=== PATIENT | female | born 1975 | race Hispanic/Latino ===

== ENCOUNTER → 2017-07-07 | Outpatient (CLI) | payer BC ==
[~2017-07-07] MED LIST: GADOBENATE DIMEGLUMINE 20 ML IV ONE
== END | disposition home or self-care (01) ==
LOC: RAH 12:54
PROVIDERS: ATTEND Psychiatry & Neurology Neurology
DX: M48.02 Spinal stenosis, cervical region (principal); M47.892 Other spondylosis, cervical region; M50.20 Other cervical disc displacement, unspecified cervical region; R29.2 Abnormal reflex; R39.15 Urgency of urination
CPT/HCPCS: 72156; A9577

== ENCOUNTER → 2017-11-29 | Outpatient (CLI) | payer BC | END | disposition home or self-care (01) | LOC: RAH 15:21 | PROVIDERS: ATTEND Obstetrics & Gynecology | DX: R10.2 Pelvic and perineal pain (principal); E03.9 Hypothyroidism, unspecified; Z90.710 Acquired absence of both cervix and uterus | CPT/HCPCS: 76856 ==

== ENCOUNTER → 2018-03-14 | Outpatient (CLI) | payer BC | END | disposition home or self-care (01) | LOC: RAH 15:22 | PROVIDERS: ATTEND Obstetrics & Gynecology | DX: N83.201 Unspecified ovarian cyst, right side (principal); R10.2 Pelvic and perineal pain; Z90.710 Acquired absence of both cervix and uterus | CPT/HCPCS: 76830; 76856 ==

== ENCOUNTER → 2018-06-16 | Outpatient (CLI) | payer BC ==
[~2018-06-16] MED LIST changes: -GADOBENATE DIMEGLUMINE 20 ML IV ONE; +GADODIAMIDE 5 MMOL/10 ML VIAL 5 MMOL/10 ML ML IV ONE
== END | disposition home or self-care (01) ==
LOC: RAH 08:52
PROVIDERS: ATTEND Otolaryngology Plastic Surgery within the Head & Neck
DX: R42 Dizziness and giddiness (principal)
CPT/HCPCS: 70553 ×2; A9579

== ENCOUNTER → 2018-07-13 | Outpatient (CLI) | payer BC ==
[~2018-07-13] MED LIST changes: +GADODIAMIDE 10 MMOL/20 ML VIAL IV ONE; -GADODIAMIDE 5 MMOL/10 ML VIAL 5 MMOL/10 ML ML IV ONE
== END | disposition home or self-care (01) ==
LOC: RAH 07:17
PROVIDERS: ATTEND Internal Medicine Endocrinology, Diabetes & Metabolism
DX: D35.2 Benign neoplasm of pituitary gland (principal)
CPT/HCPCS: 70553; A9579

== ENCOUNTER → 2019-08-24 | Outpatient (CLI) | payer BC | END | disposition home or self-care (01) | LOC: RAH 09:13 | PROVIDERS: ATTEND Internal Medicine Nephrology | DX: M51.27 Other intervertebral disc displacement, lumbosacral region (principal) | CPT/HCPCS: 72148 ==

== ENCOUNTER → 2019-12-25 | Outpatient (CLI) | payer BC | END | disposition home or self-care (01) | LOC: RAH 10:54 | PROVIDERS: ATTEND Internal Medicine Gastroenterology | DX: R14.0 Abdominal distension (gaseous) (principal); R68.81 Early satiety; R11.0 Nausea | CPT/HCPCS: 78264; A9541 ==

== ENCOUNTER → 2020-09-11 | Outpatient (CLI) | payer BC | END | disposition home or self-care (01) | LOC: RAH 15:02 | PROVIDERS: ATTEND Physical Medicine & Rehabilitation | DX: M51.17 Intervertebral disc disorders with radiculopathy, lumbosacral region (principal); M48.07 Spinal stenosis, lumbosacral region | CPT/HCPCS: 72148 ==

== ENCOUNTER → 2022-03-04 | Outpatient (CLI) | payer BC | END | disposition home or self-care (01) | LOC: RAH 11:23 | PROVIDERS: ATTEND Obstetrics & Gynecology | DX: N83.201 Unspecified ovarian cyst, right side (principal); R10.2 Pelvic and perineal pain | CPT/HCPCS: 76856 ==

== ENCOUNTER → 2022-07-31 | Outpatient (CLI) | payer BC | END | disposition home or self-care (01) | LOC: RAH 14:02 | PROVIDERS: ATTEND Internal Medicine Nephrology | DX: R94.4 Abnormal results of kidney function studies (principal) | CPT/HCPCS: 76770 ==

== ENCOUNTER → 2023-09-27 | Outpatient (CLI) | payer BC | END | disposition home or self-care (01) | LOC: RAH 09:31 | PROVIDERS: ATTEND Obstetrics & Gynecology | DX: R10.2 Pelvic and perineal pain (principal); Z90.710 Acquired absence of both cervix and uterus | CPT/HCPCS: 76830 ==

== ENCOUNTER → 2024-01-26 | Outpatient (CLI) | payer BC ==
--- NOTE | 2024-01-27 09:14 | HMCIMG ---
Diagnostic left breast mammogram and left breast ultrasound HISTORY: UNSPECIFIED LUMP IN LEFT BREAST COMPARISON: 07/28/2023 TECHNIQUE: Left breast digital diagnostic mammogram was performed. Focal spot compression views also were obtained. Left breast ultrasound was performed as well. FINDINGS: Parenchymal density: The breasts are heterogeneously dense, which may obscure small masses. There is no evidence of a dominant mass, or suspicious microcalcification. There is no evidence of nipple retraction or skin thickening. Focal spot compression views show no architectural distortion or underlying focal mass. Ultrasound images show normal appearing parenchyma. There is a 3 mm cyst in the 8:00 position. There are no solid nodules. There is no architectural distortion or acoustical shadowing. There is no skin thickening. There are some normal-appearing lymph nodes in the left axilla. IMPRESSION: 1. No mammographic or sonographic evidence of a malignant process in the left breast. The patient was entered into a reminder system with a target due date for their next mammogram. BI-RADS CATEGORY 2: BENIGN FINDINGS Recommend monthly self breast exam as well as annual clinical examination. A negative x-ray should not delay biopsy if a dominant or clinically suspicious mass is present, since 8-10% of cancers are not identified by mammography. Dense breasts particularly, may obscure an underlying neoplasm. Some of these may be detected clinically and therefore, clinical examination is an essential part of breast evaluation.
== END | disposition home or self-care (01) ==
LOC: RAH 12:46
PROVIDERS: ATTEND Obstetrics & Gynecology
DX: N60.02 Solitary cyst of left breast (principal); R92.332 Mammographic heterogeneous density, left breast; N63.24 Unspecified lump in the left breast, lower inner quadrant
CPT/HCPCS: 76641; 77065

== ENCOUNTER → 2024-07-26 | Outpatient (CLI) | payer BC ==
--- NOTE | 2024-07-27 09:09 | HMCIMG ---
Exam Type: CHEST 2VWS Clinical Information: SOB Comparison: None Findings: The lungs are clear of infiltrates. The heart is normal in size. The bony and soft tissue structures of the chest are unremarkable. Impression: Clear lungs.
== END | disposition home or self-care (01) ==
LOC: RAH 16:42
PROVIDERS: ATTEND Internal Medicine Nephrology
DX: R06.02 Shortness of breath (principal)
CPT/HCPCS: 71046

== ENCOUNTER 2024-08-11 12:31 | Emergency (ER) | payer BC ==
[~2024-08-11] VITALS: Ht 160 cm; Wt 76.2 kg
[2024-08-11 13:18] LABS: BASOPHILS # (AUTO) 0.02 K/uL (0.00-0.20); BASOPHILS % (AUTO) 0.2 % (0.0-5.0); EOSINOPHILS # (AUTO) 0.05 K/uL (0.00-0.70); EOSINOPHILS % (AUTO) 0.5 % (0.0-8.0); HEMATOCRIT 40.8 % (36-48); IMMATURE GRANULOCYTE ABSOLUTE 0.05 K/uL (0-1); LYMPHOCYTES # (AUTO) 0.8 K/uL (1.0-4.8); LYMPHOCYTES % (AUTO) 7.6 % (21.0-51.0); MEAN CORPUSCULAR HEMOGLOBIN 28.6 pg (27.0-33.0); MEAN CORPUSCULAR HGB CONC 33.3 g/dL (32.0-36.0); MEAN CORPUSCULAR VOLUME 85.9 fL (79-99); MONOCYTES # (AUTO) 0.6 K/uL (0.1-1.0); MONOCYTES % (AUTO) 5.9 % (3.0-13.0); NEUTROPHILS # (AUTO) 8.5 K/uL (1.8-7.7); NEUTROPHILS % (AUTO) 85.3 % (40.0-77.0); PLATELET COUNT (AUTO) 237 K/uL (130-400); RED BLOOD CELL COUNT(AUTO) 4.75 MIL/uL (4.00-5.50); RED CELL DISTRIBUTION WIDTH 13.3 % (11.0-15.5)
--- NOTE | 2024-08-11 13:18 | EKG ---
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
[2024-08-11 13:28] LABS: POTASSIUM 3.9 mmol/L (3.5-5.1)
[2024-08-11 13:46] LABS: B-TYPE NATRIURETIC PEPTIDE 24 pg/mL (0-100)
[2024-08-11] MEDS: ASPIRIN 325MG TAB PO ONE (14:18)
[2024-08-11 14:41] LABS: BAND NEUTROPHILS % (MANUAL) 1 % (0-2); BASOPHILS % (MANUAL) 1 % (0-2); LYMPHOCYTES % (MANUAL) 4 % (22-44); MAN.DIFF COMMENT-IMPRESSION MANUAL DIFFERENTIAL; MONOCYTES % (MANUAL) 3 % (2-9); REACTIVE LYMPHOCYTES 6 % (0-0); SEGMENTED NEUTROPHILS % 85 % (40-70); TOTAL CELLS COUNTED 100
[2024-08-11 14:42] LABS: PLATELET MORPHOLOGY COMMENT ADEQUATE
--- NOTE | 2024-08-11 15:21 | HMCIMG ---
CHEST 1VW HISTORY: Chest pain COMPARISON: None FINDINGS: A frontal projection of the chest was obtained. No acute pulmonary infiltrates is seen. The heart is normal in size. Degenerative changes are seen. No evidence of aortic calcification is seen. IMPRESSION: 1. No acute pulmonary infiltrate is seen.
[2024-08-11] MEDS: MAG/ALUM/SIMETH 30 ML UDCUP PO ONE (16:15)
[2024-08-11] MEDS: PANTOPrazole 40 MG TAB DR PO ONE (16:15)
[2024-08-11] MEDS: LIDOCAINE HCL 2% VISCOUS 15 ML UDCUP PO ONE (16:15)
--- NOTE | 2024-08-11 16:20 | ERN ---
General Chief Complaint: Chest Pain Stated Complaint: CHEST PAIN Time Seen by MD: 12:41 Time Seen by Midlevel: 12:41 Source: patient History of Present Illness Initial Comments 49-year-old female who presents to the emergency department due to chest pain onset 3 days. Patient reports epigastric discomfort, states she took a Tums prior to arrival without relief. Denies any nausea, vomiting, shortness of breath or further associated symptoms. PMHx thyroid cancer. Surgical history thyroidectomy Allergies: Coded Allergies: No Known Drug Allergies (Unverified Allergy, Unknown, 08/11/24) Past Medical History Past Medical History: Other Medical History Other: THYROID CANCER, THYROID PROBLEM Past Surgical History: Hysterectomy Surgical History Other: THYROIDECTOMY ROS Dictation Constitutional: Negative for fever,chills, and weight loss Eyes: Negative for injury, pain,redness, and discharge ENT: Negative for injury,pain or swelling Cardiovascular: Positive for chest pain Negative for palpitations, and edema Respiratory: Negative for shortness of breath, cough, and wheezing, Abdomen/GI: Positive for epigastric discomfort Negative for abdominal pain, nausea, vomiting, diarrhea, and constipation Back: Negative for injury and pain : Negative for painful urination, bleeding or discharge MS/Extremity: Negative for injury and deformity Skin: Negative for rash, and discoloration Neuro: Negative for headache, weakness, numbness, tingling, and seizure Psych: Negative for suicide ideation, homicidal ideation, and hallucinations Physical Exam Physical Exam Dictation General: awake, alert, no acute distress Head/Face: Normocephalic, atraumatic Eyes: PERRL, EOMI, normal conjuctiva ENT: oral cavity clear, oral mucosa moist Neck: Supple, normal range of motion Cardiovascular: RRR, normal S1/S2 Respiratory: CTAB, no respiratory distress, no rales or wheezes Abdomen: Soft, non-tender, non-distended, no guarding or rebound. Skin: Warm, dry, normal turgor, no rash MS/Extremity: Pulses equal, no cyanosis, neurovascular intact, FROM Neuro: COAx4, GCS 15, strength 5/5, CN 2-12 intact, normal cerebellar exam, normal gait Psych: Normal behavior, mood, and affect normal Results Laboratory and Microbiology Lab and Micro Result Laboratory Tests Test 08/11/24 13:00 08/11/24 16:20 White Blood Count 10.0 K/uL (4.8-10.8) Red Blood Count 4.75 MIL/uL (4.00-5.50) Hemoglobin 13.6 g/dL (12.0-16.0) Hematocrit 40.8 % (36-48) Mean Corpuscular Volume 85.9 fL (79-99) Mean Corpuscular Hemoglobin 28.6 pg (27.0-33.0) Mean Corpuscular Hemoglobin Concent 33.3 g/dL (32.0-36.0) Red Cell Distribution Width 13.3 % (11.0-15.5) Platelet Count 237 K/uL (130-400) Mean Platelet Volume 11.2 fL (7.5-10.5) H Immature Granulocyte % (Auto) 0.5 % (0-1) Neutrophils (%) (Auto) 85.3 % (40.0-77.0) H Lymphocytes (%) (Auto) 7.6 % (21.0-51.0) L Monocytes (%) (Auto) 5.9 % (3.0-13.0) Eosinophils (%) (Auto) 0.5 % (0.0-8.0) Basophils (%) (Auto) 0.2 % (0.0-5.0) Neutrophils # (Auto) 8.5 K/uL (1.8-7.7) H Lymphocytes # (Auto) 0.8 K/uL (1.0-4.8) L Monocytes # (Auto) 0.6 K/uL (0.1-1.0) Eosinophils # (Auto) 0.05 K/uL (0.00-0.70) Basophils # (Auto) 0.02 K/uL (0.00-0.20) Absolute Immature Granulocyte (auto 0.05 K/uL (0-1) Segmented Neutrophils % 85 % (40-70) H Band Neutrophils % 1 % (0-2) Lymphocytes % (Manual) 4 % (22-44) L Monocytes % (Manual) 3 % (2-9) Basophils % (Manual) 1 % (0-2) Nucleated Red Blood Cells 0.0 % (0.0-0.19) Differential Comment MANUAL DIFFERENTIAL Reactive Lymphocytes 6 % (0-0) H White Cell Morphology Comment Platelet Morphology Comment ADEQUATE Red Blood Cell Morphology ANISO 1+ Sodium Level 142 mmol/L (136-145) Potassium Level 3.9 mmol/L (3.5-5.1) Chloride Level 106 mmol/L (101-111) Carbon Dioxide Level 28 mmol/L (21-32) Blood Urea Nitrogen 16 mg/dL (7-18) Creatinine 1.0 mg/dL (0.5-1.0) Glomerular Filtration Rate Calc 69 mL/min (>90) Random Glucose 89 mg/dL (70-105) Total Calcium 8.7 mg/dL (8.5-10.1) Total Creatine Kinase 102 U/L (21-232) Troponin I High Sensitivity < 4 ng/L (4-50) L B-Type Natriuretic Peptide 24 pg/mL (0-100) Urine Color LIGHT-YELLOW (YELLOW) Urine Appearance CLEAR (CLEAR) Urine pH 5.5 (5.0-8.0) Urine Specific [place] 1.026 (1.001-1.031) Urine Protein NEGATIVE mg/dL (NEGATIVE) Urine Glucose (UA) NEGATIVE mg/dL (NEGATIVE) Urine Ketones NEGATIVE mg/dL (NEGATIVE) Urine Occult Blood NEGATIVE (NEGATIVE) Urine Nitrate NEGATIVE (NEGATIVE) Urine Bilirubin NEGATIVE mg/dL (NEGATIVE) Urine Urobilinogen 0.2 mg/dL (0.2-1.0) Urine Leukocyte Esterase NEGATIVE Leann/uL Labs Reviewed?: Yes EKG/XRAY/US/CT/MRI X-RAY Comment REASON: CHEST PAIN ORDERING PHYSICIAN: JENNIFER BERMAN MD PROCEDURE: CXR1VW - CHEST 1VW CHEST 1VW HISTORY: Chest pain COMPARISON: None FINDINGS: A frontal projection of the chest was obtained. No acute pulmonary infiltrates is seen. The heart is normal in size. Degenerative changes are seen. No evidence of aortic calcification is seen. IMPRESSION: 1. No acute pulmonary infiltrate is seen. DICTATED BY: GHADA RODGERS MD DATE: 08/11/24 1518 [facility] MDM: Differential diagnosis: Musculoskeletal pain, SC, ACS, acid reflux Rationale: 49-year-old female who presents to the emergency department due to chest pain onset 3 days. Patient reports epigastric discomfort, states she took a Tums prior to arrival without relief. Denies any nausea, vomiting, shortness of breath or further associated symptoms. PMHx thyroid cancer. Surgical history thyroidectomy. Per physical examination patient is in no acute distress, nonlabored breathing. Labs obtained CBC and chemistry within normal limits. EKG normal, troponin negative. UA negative for urinary tract infection. Aspirin and GI cocktail administered in the ED. On re-examination patient verbalized improvement, chest pain resolved. She was educated on findings and diagnosis. Advised to follow up with PCP. Return to the emergency department if any worsening symptoms. Patient verbalized understanding. Patient stable for discharge. There are no social concerns with this patient. I independently interpreted the test that were performed, results were reviewed by me and considered findings on radiology if ordered. Medical management and examination interpretation discussions were had by me with other qualified healthcare professionals as indicated for the patient's care. ED Course Orders Procedure Category Date Status Time Vital Signs Per CPOE 08/11/24 Transmitted Routine 12:36 B-Type Natriuretic LAB 08/11/24 Complete Peptide 12:36 Chest 1vw RAD 08/11/24 Resulted 12:36 12 Lead Ekg Tracing- EKG 08/11/24 Complete Technical 12:36 Oxygen By Nc/Pulse Ox CPOE 08/11/24 Transmitted 12:36 Maintain Iv CPOE 08/11/24 Transmitted 12:36 Iv Insertion CPOE 08/11/24 Transmitted 12:36 Cardiac Monitoring CPOE 08/11/24 Transmitted 12:36 Pulse Oximetry With CPOE 08/11/24 Transmitted Vs And Prn 12:36 Cbc With Differential LAB 08/11/24 Complete 12:36 Activity: Br W/Brp CPOE 08/11/24 Transmitted With Assist 12:36 Creatine Kinase, Total LAB 08/11/24 Complete 12:36 Troponin I High LAB 08/11/24 Complete Sensitivity 12:36 Urinalysis Profile LAB 08/11/24 Complete 12:36 Basic Metabolic Panel LAB 08/11/24 Complete 12:36 Aspirin 325mg Tab PHA 08/11/24 Complete (Aspirin 325mg Tab) 14:30 Manual Differential LAB 08/11/24 Complete 13:00 Mag/Alum/Simeth 30ml PHA 08/11/24 Complete (Maalox Plus 30ml) 15:00 Pantoprazole 40mg Tab PHA 08/11/24 Complete (Protonix 40mg Tab 15:00 Lidocaine Hcl 2% PHA 08/11/24 Complete Viscous (Lidocaine Hcl 15:00 Current Medications Medications (Trade) Dose Ordered Sig/Tom Route PRN Reason Start Time Stop Time Status Last Admin Dose Admin Al Hydroxide/Mg Hydroxide (MAALox PLUS 30ML) 30 ml ONCE ONCE PO 5/30/25 15:00 08/11/24 15:01 DC 08/11/24 16:15 Aspirin (Aspirin 325mg Tab) 325 mg ONCE ONCE PO 08/11/24 14:30 08/11/24 14:31 DC 08/11/24 14:18 Lidocaine HCl (Lidocaine HCl 2% Viscous) 10 ml ONCE ONCE PO 08/11/24 15:00 08/11/24 15:01 DC 08/11/24 16:15 Pantoprazole Sodium (PROTonix 40MG TAB) 40 mg ONCE ONCE PO 08/11/24 15:00 08/11/24 15:01 DC 08/11/24 16:15 Vital Signs Date Time Temp Pulse Resp B/P (MAP) Pulse Ox O2 Delivery O2 Flow Rate FiO2 08/11/24 16:45 98.4 79 16 115/75 98 Room Air* 0 21 08/11/24 13:48 98.4 80 16 119/79 98 Room Air* 0 21 08/11/24 12:32 97.9 90 18 131/89 99 Room Air 0 DX & DISP Disposition: Discharge Departure Impression: Primary Impression: Chest pain with low risk for cardiac etiology Condition: Stable Additional Instructions: Discharge home. Rest. Follow up with primary care DrLanden in 24 hours. Return to the ER for any acute changes or worsening symptoms. If any medications were prescribed take as directed. Okay to continue home medications unless otherwise discussed during your visit in the emergency room today. Patient was also advised to follow-up with primary care physician in 1 to 2 days for continued monitoring. Referrals: TYLER BROWN MD (PCP) I performed the substantive portion of the visit. I have reviewed and personally made and approve the management plan that is documented in the notes by myself or the MELIA. I acknowledge full responsibility for the patient's management plan. DAVID DESAI August 11, 2024 16:19
[2024-08-11 16:45] VITALS: BP 115/75; PULSE 79; RESP 16; TEMP 98.4; O2SAT 98
[2024-08-11 16:45] LABS: APPEARANCE,URINE CLEAR (CLEAR); BILIRUBIN,URINE NEGATIVE (NEGATIVE); COLOR,URINE LIGHT-YELLOW (YELLOW); GLUCOSE, URINE (UA) NEGATIVE (NEGATIVE); KETONES,URINE NEGATIVE (NEGATIVE); LEUKOCYTE ESTERASE ,URINE NEGATIVE Leu/uL (NEGATIVE); NITRATE,URINE NEGATIVE (NEGATIVE); OCCULT BLOOD,URINE NEGATIVE (NEGATIVE); PH,URINE 5.5 (5.0-8.0); PROTEIN,URINE NEGATIVE (NEGATIVE); UROBILINOGEN,URINE 0.2 mg/dL (0.2-1.0)
[2024-08-11 16:46] LABS: ADD UA MICROSCOPIC NO
== END 2024-08-11 17:13 | disposition home or self-care (01) ==
LOC: EDH 12:31
DX: R07.89 Other chest pain (principal); Z90.710 Acquired absence of both cervix and uterus
CPT/HCPCS: 36415; 71045; 80048; 81003; 82550; 83880; 84484; 85025; 93005; 99284

== ENCOUNTER → 2025-02-07 | Outpatient (CLI) | payer BC | END | disposition home or self-care (01) | LOC: RESP 14:41 | PROVIDERS: ATTEND Internal Medicine Nephrology | DX: R06.02 Shortness of breath (principal) | CPT/HCPCS: 94060; 94727; 94729 ==

== ENCOUNTER → 2025-02-21 | Outpatient (CLI) | payer BC ==
--- NOTE | 2025-02-21 14:19 | HMCIMG ---
BILATERAL BREAST ULTRASOUND: CLINICAL HISTORY: Diffuse cystic mastopathy of breast Finding: Real-time examination of the both breasts demonstrates heterogeneous echotexture throughout both the breasts without evidence of focal solid mass. The right breast at 2:00 there is a cyst measuring 0.9 x 0.3 x 0.8 cm.. IMPRESSION: Dense breast with a cyst seen in the right breast no mass identified. I would recommend annual mammography with tomography with bilateral breast sonogram. FINAL ASSESSMENT: ACR: BI-RAD- 2. Benign Finding.
--- NOTE | 2025-02-21 14:22 | HMCIMG ---
DIGITAL bilateral DIAGNOSTIC MAMMOGRAM Technique: The digital mammographic examination of both breasts in craniocaudal, mediolateral oblique views along with CAD was obtained. Ultrasound of both breasts demonstrate a cyst in the right breast History: This is a 49 years year-old female 3, para2 Ab1 . Patient has no family history of breast cancer. Patient has no complaint Reference: Prior mammogram from 01/26/2024, 07/28/2023, 05/22/2022 and 01/11/2021 are available.. Breast composition: Breast composition C: The breasts are heterogeneously dense, which may obscure small masses. Finding: The digital mammographic examination of both breasts in craniocaudal and mediolateral oblique view along with CAD demonstrates moderately heterogeneously dense. The right breast has a cyst as confirmed by ultrasound.. There is no evidence of any dendritic mass, cluster microcalcification or architectural distortion. The retromammary fat appears to be normal. IMPRESSION: Cyst in the right breast NO RADIOGRAPHIC EVIDENCE OF MALIGNANT CHANGES. WE WOULD RECOMMEND ANNUAL FOLLOW UP WITH TOMOSYNTHESIS UNLESS OTHERWISE CLINICALLY INDICATED. I would recommend annual bilateral breast sonogram due to dense breasts. FINAL ASSESSMENT: ACR: BI-RAD- 2. Benign Finding. NOTE: IF A WORK-UP OF THIS PATIENT LEADS TO A BIOPSY, PLEASE FORWARD A COPY OF THE PATHOLOGY REPORT TO OUR OFFICE REQUIRED BY [employer] E[employer]ECT[employer] DECEMBER 13, 1993. A NEGATIVE MAMMOGRAM SHOULD NOT PRECLUDE BIOPSY OF A CLINICALLY PALPABLE SUSPICIOUS MASS, 10% OF BREAST CANCERS ARE MAMMOGRAPHICALLY OCCULT. THIS MAMMOGRAPHY FACILITY IS FULLY ACCREDITED BY THE FOOD AND DRUG ADMINISTRATION (FDA). THANK YOU FOR THIS REFERRAL.
== END | disposition home or self-care (01) ==
LOC: RAH 08:33
PROVIDERS: ATTEND Obstetrics & Gynecology
DX: N60.01 Solitary cyst of right breast (principal); N60.11 Diffuse cystic mastopathy of right breast; N60.12 Diffuse cystic mastopathy of left breast; R92.333 Mammographic heterogeneous density, bilateral breasts
CPT/HCPCS: 77066

== ENCOUNTER → 2025-03-14 | Outpatient (CLI) | payer BC ==
--- NOTE | 2025-03-15 00:20 | HMCIMG ---
US ABDOMINAL ULTRASOUND CLINICAL INDICATION: Abnormal kidney function studies. COMPARISON: ABDOMINAL ULTRASOUND dated 12/04/2014. TECHNIQUE: Grayscale and limited color Doppler ultrasound evaluation of the abdomen was performed. FINDINGS: Liver: The liver measures 14.8 cm in craniocaudal dimension and demonstrates normal echogenicity and homogeneous echotexture. No focal hepatic lesions are identified. No intrahepatic biliary ductal dilatation is seen. Gallbladder: The gallbladder wall measures approximately 1 mm in thickness and is within normal limits. No gallstones, sludge, or pericholecystic fluid is identified. Biliary Tree: The common bile duct measures 4 mm in diameter, within normal limits for age. No biliary dilatation is present. Pancreas: The head and body of the pancreas appear within normal limits. The tail is partially visualized due to overlying bowel gas. No definite pancreatic mass or ductal dilatation is identified in the visualized portions. Spleen: The spleen measures 9.6 3.0 3.4 cm and is normal in size and echotexture without focal lesions. Kidneys: The right kidney measures 10.5 3.7 4.7 cm. The left kidney measures 11.0 4.1 4.3 cm. Both kidneys demonstrate preserved cortical thickness and normal echogenicity. No hydronephrosis, renal calculi, or focal renal masses are identified. Vasculature: The inferior vena cava is patent. The abdominal aorta measures approximately 2.0 cm proximally, 1.8 cm at the mid segment, and 1.5 cm distally, without aneurysmal dilatation. Ascites: No free fluid is identified. IMPRESSION: 1. Normal sonographic appearance of both kidneys without hydronephrosis or obstructive uropathy. 2. No acute sonographic abnormality of the liver, gallbladder, biliary system, spleen, or visualized pancreas. 3. Partially visualized pancreatic tail, limited by bowel gas. 4. Comparison is made with prior ABDOMINAL ULTRASOUND dated 12/04/2014. Previously noted 0.4 cm gallbladder polyp not visualized on current exam. RECOMMENDATIONS: 1. In the setting of abnormal renal function tests with normal renal ultrasound findings, correlate with laboratory values and clinical history. Per ACR Appropriateness Criteria, no additional imaging is required unless there is concern for intrinsic renal disease or complications. 2. If there is persistent or unexplained renal dysfunction, further evaluation with nephrology consultation and/or cross-sectional imaging such as CT or MRI may be considered based on clinical judgment and ACR guidelines. /Sims
== END | disposition home or self-care (01) ==
LOC: RAH 09:05
PROVIDERS: ATTEND Internal Medicine Nephrology
DX: R94.4 Abnormal results of kidney function studies (principal)
CPT/HCPCS: 76700